=== PATIENT | male | born 1955 | race African-American/Black ===

== ENCOUNTER 2016-10-06 08:23 | Outpatient (CLI) | payer OTHER ==
[2016-10-06 10:45] LABS: Hemoglobin A1c 5.9 % (4.0-6.0)
[2016-10-06 10:47] LABS: ALT (SGPT) 9 U/L (8-55); AST (SGOT) 15 U/L (5-34); Alkaline Phosphatase 75 U/L (40-150); Anion Gap 15 mmol/L (10-20); BUN (Urea Nitrogen) 7 mg/dL (8.4-25.7); Bilirubin, Total 0.4 mg/dL (0.2-1.2); Calc. Creatinine Clearance 0 mL/min (70-130); Calcium 9.2 mg/dL (7.8-10.44); Carbon Dioxide 28 mmol/L (22-29); Cardiac Risk 3.5 (Less than 4.5); Chloride 103 mmol/L (98-107); Cholesterol 125 mg/dl (< 200 Desired); Estimated GFR-MDRD Greater than 90; Globulin 3.1 g/dL (2.4-3.5); Glucose 83 mg/dL (70-105); HDL Cholesterol 36 mg/dL (>60 Neg Risk); LDL Cholesterol, Calculated 70 mg/dL; Potassium 4.4 mmol/L (3.5-5.1); Protein, Total 7.1 g/dL (6.0-8.3); Sodium 142 mmol/L (136-145); Triglycerides 94 mg/dL (Less than 150)
[2016-10-06 12:09] LABS: Free T4 (Free Thyroxine) 0.8 ng/dL (0.70-1.48); Thyroid Stimulating Hormone 4.3365 uIU/mL (0.35-4.94)
[2016-10-06 14:40] LABS: #Basophils 0.1 thou/uL (0.0-0.2); #Eosinphils 0.5 thou/uL (0.0-0.7); #Lymphocytes 2.7 thou/uL (1.20-3.40); #Monocytes 0.8 thou/uL (0.11-0.59); #Neutrophils 5.3 thou/uL (1.40-6.50); %Basophils 0.9 % (0.0-1.0); %Eosinophils 5.1 % (0.0-10.0); %Lymphocytes 28.7 % (21.0-51.0); %Monocytes 8.1 % (0.0-10.0); %Neutrophils 57.2 % (42.0-75.0); Hemoglobin 13.4 g/dL (14.0-18.0); Mean Corpuscular Hemoglobin 27.8 pg (27.0-31.0); Mean Corpuscular Volume 92.8 fl (80.0-94.0); Mean Platelet Volume 8.2 fL (7.4-10.4); Platelet Count 211 thou/uL (130-400); RBC Distribution Width 16.6 % (11.5-14.5); Red Blood Cell (RBC) Count 4.81 mill/uL (4.70-6.10); White Blood Cell (WBC) Count 9.2 thou/uL (4.8-10.8)
== END 2016-10-06 08:24 | disposition home or self-care (01) ==
LOC: NAV LABSP 08:23
PROVIDERS: ATTEND Family Medicine
DX: I10 Essential (primary) hypertension (principal); F25.9 Schizoaffective disorder, unspecified; R56.9 Unspecified convulsions
CPT/HCPCS: 36415; 80053; 80061; 83036; 84439; 84443; 85025

== ENCOUNTER 2017-03-13 15:21 | Emergency (ER) | payer OTHER ==
[2017-03-13] MEDS ORDERED: Sodium Chloride 0.9% 1,000 ML ONE (16:15)
[2017-03-13] MEDS ORDERED: Ondansetron HCl/PF 4 MG/2 ML Vial ONE (16:16)
[2017-03-13 16:46] LABS: #Basophils 0.1 thou/uL (0.0-0.2); #Eosinphils 0.2 thou/uL (0.0-0.7); #Lymphocytes 3.7 thou/uL (1.20-3.40); #Monocytes 1.1 thou/uL (0.11-0.59); #Neutrophils 3.9 thou/uL (1.40-6.50); %Basophils 1.4 % (0.0-1.0); %Eosinophils 2.2 % (0.0-10.0); %Lymphocytes 41.3 % (21.0-51.0); %Monocytes 11.7 % (0.0-10.0); %Neutrophils 43.4 % (42.0-75.0); Hemoglobin 14.8 g/dL (14.0-18.0); Mean Corpuscular HGB CONC 30.8 g/dL (32.0-36.0); Mean Corpuscular Hemoglobin 28.7 pg (27.0-31.0); Mean Corpuscular Volume 93.4 fl (80.0-94.0); Mean Platelet Volume 14.3 fL (7.4-10.4); Platelet Count 117 thou/uL (130-400); Red Blood Cell (RBC) Count 5.15 mill/uL (4.70-6.10); White Blood Cell (WBC) Count 9.1 thou/uL (4.8-10.8)
[2017-03-13 16:59] LABS: ALT (SGPT) 10 U/L (8-55); AST (SGOT) 15 U/L (5-34); Albumin 3.8 g/dL (3.5-5.0); Alkaline Phosphatase 75 U/L (40-150); Anion Gap 15 mmol/L (10-20); BUN (Urea Nitrogen) 15 mg/dL (8.4-25.7); Bilirubin, Total 0.3 mg/dL (0.2-1.2); Calc. Creatinine Clearance 0 mL/min (70-130); Calcium 9.2 mg/dL (7.8-10.44); Carbon Dioxide 31 mmol/L (22-29); Chloride 103 mmol/L (98-107); Estimated GFR-MDRD Greater than 90; Globulin 2.9 g/dL (2.4-3.5); Glucose 108 mg/dL (70-105); Protein, Total 6.7 g/dL (6.0-8.3); Sodium 145 mmol/L (136-145)
[2017-03-13 17:03] LABS: CKMB 3.1 ng/mL (0-6.6); Troponin I Less than 0.010 ng/mL (< 0.028)
--- NOTE | 2017-03-13 17:45 | RAD ---
PORTABLE SEMIUPRIGHT CHEST: 03/13/17 HISTORY: 61-year-old male with weakness. COMPARISON: 08/14/15. FINDINGS: Monitor leads overlie the chest. Loop recorder noted overlying the left chest. Marked bullous emphyse ma changes in the upper and mid lung zones and linear and interstitial scarring changes in the mid an d lower lungs stable from the prior study. No confluent pneumonia, overt edema or pleural effusion. IMPRESSION: Extensive chronic changes bilaterally including marked upper lung zone and bullous emphysema changes and mid and lower lung zone linear scarring, stable from 08/14/15. No confluent pneumonia or other acu te process. POS: [id number]
[2017-03-13 18:16] LABS: Bilirubin Negative (Negative); Blood, Urine Negative (Negative); Clarity Clear (Clear); Glucose, Urine (Dipstick) Negative (Negative); Leukocyte Negative (Negative); Nitrite Negative (Negative); Protein, Urine (Dipstick) Negative (Neg-Trace); pH, Urine 6.5 (5.0-9.0)
--- NOTE | 2017-03-13 19:12 | CT ---
CT HEAD WITH AND WITHOUT CONTRAST: 03/13/17 INDICATION: Leg weakness bilateral. FINDINGS: Precontrast imaging reveals a moderate sized region of the posterior left cerebral hemisphere encepha lomalacia with mild degree of parenchymal volume loss. Lacunar infarction is seen within right cerebe llar hemisphere. There is mild chronic microvascular ischemic disease of the cerebral white matter wi th superimposed cavitary lacunar infarction of the left basal ganglia. There is no mass producing int ra-axial enhancement. Mild scattered paranasal sinus mucosal thickening is present. IMPRESSION: 1. No acute intracranial hemorrhage or mass effect. 2. Scattered areas of remote appearing infarction and chronic ischemic disease. There is no acut e intra-axial enhancement identified. POS: C
== END 2017-03-13 20:33 | disposition home or self-care (01) ==
LOC: NAV ERS 15:21
DX: E86.0 Dehydration (principal); R29.898 Other symptoms and signs involving the musculoskeletal system; I10 Essential (primary) hypertension; G47.00 Insomnia, unspecified; E78.5 Hyperlipidemia, unspecified; F31.9 Bipolar disorder, unspecified; F25.9 Schizoaffective disorder, unspecified; G40.909 Epilepsy, unspecified, not intractable, without status epilepticus; D64.9 Anemia, unspecified; F41.9 Anxiety disorder, unspecified; F17.210 Nicotine dependence, cigarettes, uncomplicated; Z86.73 Personal history of transient ischemic attack (TIA), and cerebral infarction without residual deficits; Z79.899 Other long term (current) drug therapy; Z79.84 Long term (current) use of oral hypoglycemic drugs
CPT/HCPCS: 70470; 71010; 80053; 80164; 81003; 82553; 84484; 85025; 93005; 96361; 96374; J2405; J7050

== ENCOUNTER 2018-03-30 14:37 | Emergency (ER) | payer OTHER ==
[2018-03-30] MEDS ORDERED: methylPREDNISolone Sod Succ/PF 125 MG/2 ML VIAL ONE (14:52)
[2018-03-30 16:10] LABS: ALT (SGPT) 12 U/L (8-55); AST (SGOT) 15 U/L (5-34); Albumin 3.6 g/dL (3.4-4.8); Alkaline Phosphatase 64 U/L (40-150); Anion Gap 13 mmol/L (10-20); BUN (Urea Nitrogen) 13 mg/dL (8.4-25.7); Bilirubin, Total 0.4 mg/dL (0.2-1.2); Calc. Creatinine Clearance 0 mL/min (70-130); Carbon Dioxide 31 mmol/L (23-31); Chloride 100 mmol/L (98-107); Estimated GFR-MDRD Greater than 90; Globulin 2.7 g/dL (2.4-3.5); Glucose 97 mg/dL (80-115); Protein, Total 6.3 g/dL (5.8-8.1); Sodium 140 mmol/L (136-145)
[2018-03-30 16:21] LABS: pH (Arterial) 7.352 (7.35-7.45)
[2018-03-30] MEDS ORDERED: Albuterol Sulfate 2.5 mg/0.5 ml Neb ONE ×2 (16:21→16:35)
[2018-03-30 16:22] LABS: O2 Saturation (calc) POC ABG 94.9 % (94-98)
[2018-03-30 16:23] LABS: Calcium, Ionized 1.22 mmol/L (1.15-1.33); Hemoglobin POC ABG 14.2 g/dL (12.0-17.0); Potassium POC ABG 3.8 mmol/L (3.5-4.5)
[2018-03-30 16:24] LABS: CO2 Tension (PaCO2) POC ABG 65.3 mmHg (35.0-48.0)
[2018-03-30] MEDS ORDERED: Magnesium Sulfate 2 GM/NS 0.9% 50 ML BAG ONE (16:36)
[2018-03-30 16:40] LABS: Band 3 % (5-11); Lymphocytes 25 % (21-51); MDiff Complete? YES; Mean Corpuscular HGB CONC 30.8 g/dL (32.0-36.0); Mean Corpuscular Hemoglobin 29.7 pg (27.0-31.0); Mean Corpuscular Volume 96.2 fL (78.0-98.0); Mean Platelet Volume 10.2 fL (7.4-10.4); Monocytes 6 % (0-10); Neutrophil 62 % (42-75); Platelet Count 157 thou/uL (130-400); RBC Distribution Width 15.7 % (11.5-14.5); Reactive Lymphocytes 4 % (0-10); Red Blood Cell (RBC) Count 4.39 mill/uL (4.70-6.10); White Blood Cell (WBC) Count 9.7 thou/uL (4.8-10.8)
--- NOTE | 2018-03-30 17:30 | RAD ---
SINGLE VIEW OF THE CHEST: 03/30/18 COMPARISON: 03/13/17 HISTORY: Dyspnea. FINDINGS: Single view of the chest shows a normal sized cardiomediastinal silhouette with atherosclerotic calci fications in the aorta. A cardiac monitoring device projects over the left chest wall. There is no ev idence of consolidation, mass, or pleural effusion. IMPRESSION: No evidence of acute cardiopulmonary disease. POS: CET
== END 2018-03-30 17:27 | disposition short-term general hospital (02) ==
LOC: NAV ERS 14:37
DX: J44.1 Chronic obstructive pulmonary disease with (acute) exacerbation (principal); R06.89 Other abnormalities of breathing; R09.02 Hypoxemia; G40.909 Epilepsy, unspecified, not intractable, without status epilepticus; E03.9 Hypothyroidism, unspecified; I10 Essential (primary) hypertension; G47.00 Insomnia, unspecified; E78.5 Hyperlipidemia, unspecified; D64.9 Anemia, unspecified; J44.9 Chronic obstructive pulmonary disease, unspecified; F31.9 Bipolar disorder, unspecified; F20.9 Schizophrenia, unspecified; F17.210 Nicotine dependence, cigarettes, uncomplicated; Z79.899 Other long term (current) drug therapy; Z86.73 Personal history of transient ischemic attack (TIA), and cerebral infarction without residual deficits; Z79.51 Long term (current) use of inhaled steroids; Z79.84 Long term (current) use of oral hypoglycemic drugs
CPT/HCPCS: 71045; 80053; 82330; 82435; 82803; 83605; 83880; 84132; 84295; 84484; 85014; 85025; 85379; 87040; 93005; 94660; 94760; 96365; 96374; 99292; J2930; J3475; J7611; J7620

== ENCOUNTER 2019-06-21 07:28 | Emergency (ER) | payer OTHER ==
[2019-06-21] MEDS ORDERED: Lidocaine 1% w/Epinephrine 1:100K 30 ML VIAL ONE (08:00)
--- NOTE | 2019-06-21 09:00 | CT ---
CT BRAIN WITHOUT CONTRAST: HISTORY: Injury to the head. No loss of consciousness. Left eyebrow laceration. COMPARISON: 03/18/2017. FINDINGS: Encephalomalacia in the posterior left cerebral hemisphere and lacunar infarction in the right cerebe llar hemisphere are again seen. Changes of chronic small-vessel ischemic disease is again noted with cavitary lacunar infarction of the left basal ganglia. No evidence of acute infarct, hemorrhage, midline shift, or abnormal extraaxial fluid collections are seen. The bony calvarium is intact. There is mucosal disease in the ethmoid air cells. IMPRESSION: No CT evidence of acute intracranial process. POS: [id number]
[2019-06-21] MEDS ORDERED: Adacel (T-DAP) 0.5 ML SYRINGE ONE (09:33)
== END 2019-06-21 10:46 | disposition home or self-care (01) ==
LOC: NAV ERS 07:28
DX: S01.112A Laceration without foreign body of left eyelid and periocular area, initial encounter (principal); E11.9 Type 2 diabetes mellitus without complications; D50.9 Iron deficiency anemia, unspecified; E78.5 Hyperlipidemia, unspecified; I10 Essential (primary) hypertension; Z86.73 Personal history of transient ischemic attack (TIA), and cerebral infarction without residual deficits; F20.9 Schizophrenia, unspecified; Z79.899 Other long term (current) drug therapy; Y04.0XXA Assault by unarmed brawl or fight, initial encounter
CPT/HCPCS: 12011; 70450; 90471; 90715; J2001

== ENCOUNTER 2020-02-12 20:43 | Observation (INO) | payer OTHER ==
[2020-02-12 21:58] LABS: #Basophils 0.1 thou/uL (0.0-0.2); #Eosinphils 0.2 thou/uL (0.0-0.7); #Lymphocytes 2.9 thou/uL (1.20-3.40); #Monocytes 0.6 thou/uL (0.11-0.59); %Eosinophils 3.1 % (0.0-10.0); %Lymphocytes 42.2 % (21.0-51.0); %Monocytes 9.1 % (0.0-10.0); %Neutrophils 44.5 % (42.0-75.0); Hemoglobin 12.1 g/dL (14.0-18.0); Mean Corpuscular HGB CONC 31.8 g/dL (32.0-36.0); Mean Corpuscular Volume 97.5 fL (78.0-98.0); Platelet Count 167 thou/uL (130-400); RBC Distribution Width 15.7 % (11.5-14.5); Red Blood Cell (RBC) Count 3.92 mill/uL (4.70-6.10); White Blood Cell (WBC) Count 6.8 thou/uL (4.8-10.8)
[2020-02-12 22:17] LABS: ALT (SGPT) 9 U/L (8-55); AST (SGOT) 15 U/L (5-34); Albumin 3.6 g/dL (3.4-4.8); Alkaline Phosphatase 85 U/L (40-110); Anion Gap 16 mmol/L (10-20); BUN (Urea Nitrogen) 7 mg/dL (8.4-25.7); Bilirubin, Total 0.6 mg/dL (0.2-1.2); Calc. Creatinine Clearance 0 mL/min (70-130); Carbon Dioxide 26 mmol/L (23-31); Chloride 105 mmol/L (98-107); Estimated GFR-MDRD Greater than 90; Globulin 3.2 g/dL (2.4-3.5); Glucose 108 mg/dL (80-115); Potassium 3.8 mmol/L (3.5-5.1); Protein, Total 6.8 g/dL (5.8-8.1); Sodium 143 mmol/L (136-145)
[2020-02-12] MEDS ORDERED: Dextrose 5 % And 0.9 % NaCl 1,000 ML ONE (22:22)
[2020-02-13] MEDS: Dextrose 5 % And 0.9 % NaCl 1,000 ML IV SCH ×2 (01:15→07:59)
[2020-02-13 01:37] VITALS: BMI 30.9
[2020-02-13] MEDS ORDERED: Ondansetron ODT 4 MG TAB SL PRN (02:00)
[2020-02-13] MEDS ORDERED: Acetaminophen 325 MG TAB PO PRN (02:00)
[2020-02-13] MEDS ORDERED: Ondansetron PF 4 MG/2 ML Vial IVP PRN (02:00)
[2020-02-13] MEDS: Furosemide 40 MG TAB PO SCH ×2 (08:02→13:06)
[2020-02-13] MEDS: Ventolin HFA Inhaler 60 PUFF INHALER INH SCH ×3 (08:05→20:34)
[2020-02-13] MEDS ORDERED: Non-Formulary Item 1 EACH (Amlodipine [Norvasc] 10 MG Tab) PO SCH (09:00)
[2020-02-13] MEDS ORDERED: Lisinopril 10 MG TAB PO SCH (09:00)
[2020-02-13] MEDS ORDERED: Amlodipine 5 MG TAB PO SCH (09:00)
[2020-02-13] MEDS ORDERED: Levothyroxine Sodium 50 MCG TAB PO SCH (09:00)
[2020-02-13] MEDS ORDERED: DIVALPROEX SODIUM 500 MG PO SCH (09:00)
[2020-02-13 15:46] LABS: SARS-CoV-2 MS2 Positive; SARS-CoV-2 N Gene Negative; SARS-CoV-2 S Gene Negative; SARS-CoV-2 by NAA Not Detected (NotDetected); SARS-CoV-2 orf1ab Negative
[2020-02-13 20:29] VITALS: TEMP 97.6
[2020-02-13] MEDS ORDERED: TRAZODONE HCL 150 MG PO SCH (21:00)
[2020-02-13] MEDS ORDERED: OLANZAPINE 7.5 MG PO SCH (21:00)
[2020-02-13] MEDS ORDERED: Atorvastatin Calcium 40 MG TAB PO SCH (21:00)
[2020-02-13] MEDS ORDERED: clonazePAM 0.5 MG TAB PO SCH (21:00)
[2020-02-13] MEDS ORDERED: traZODone HCl 50 MG TAB PO SCH (21:00)
[2020-02-13] MEDS ORDERED: OLANZapine 5 MG TAB PO SCH (21:00)
[2020-02-13 22:21] VITALS: BP 188/85
[2020-02-14] MEDS ORDERED: Levothyroxine Sodium 50 MCG TAB PO SCH (06:00)
== END 2020-02-13 21:45 ==
LOC: NAV ERS 20:43 → NAV ACUTE 02-13 01:10
PROVIDERS: ADMIT Internal Medicine; ATTEND Internal Medicine
DX: T38.3X1A Poisoning by insulin and oral hypoglycemic [antidiabetic] drugs, accidental (unintentional), initial encounter (principal); E11.9 Type 2 diabetes mellitus without complications; D50.9 Iron deficiency anemia, unspecified; E78.5 Hyperlipidemia, unspecified; E78.00 Pure hypercholesterolemia, unspecified; I10 Essential (primary) hypertension; E03.9 Hypothyroidism, unspecified; Z86.73 Personal history of transient ischemic attack (TIA), and cerebral infarction without residual deficits; F20.9 Schizophrenia, unspecified; Z79.51 Long term (current) use of inhaled steroids; Z79.899 Other long term (current) drug therapy
CPT/HCPCS: 36416; 80053; 85025; 87635; 36415-59; G0378; J7042; U0003